=== PATIENT | female | born 1965 | race Caucasian/White ===

== ENCOUNTER 2018-05-21 12:01 | Outpatient (CLI) | payer BC ==
--- NOTE | 2018-05-21 14:42 | ULT ---
PELVIC ULTRASOUND: HISTORY: Left leg edema. The patient is post hysterectomy in 2004. FINDINGS: Transabdominal and transvaginal pelvic ultrasound demonstrate no evidence of mass or free fluid. The patient is post hysterectomy. The ovaries are not visualized. IMPRESSION: No definite evidence of pelvic mass. POS: OFF
--- NOTE | 2018-05-21 15:06 | ULT ---
BILATERAL RENAL DOPPLER ULTRASOUND: HISTORY: Flank pain. Edema. COMPARISON: None. TECHNIQUE: Real-time, mejia-scale, color Doppler, and spectral analysis of the kidneys is performed, as well as o f the renal vessels. FINDINGS: The right kidney measures 10.2 x 4.4 x 4.7 cm, and the left kidney measures 10.2 x 5.8 x 5.2 cm. No renal mass, hydronephrosis, or abnormal calcifications. The urinary bladder is unremarkable. VESSELS: The aortic peak systolic velocity is normal. The right arcuate vessel peak systolic veloci ties are not elevated. No elevated renal artery to aortic ratio. IMPRESSION: No evidence of renal artery stenosis. POS: [facility]
== END 2018-05-21 12:02 | disposition home or self-care (01) ==
LOC: BICULT 12:01
PROVIDERS: ATTEND Nurse Practitioner
DX: R60.0 Localized edema (principal)
CPT/HCPCS: 76700; 76770; 76856